=== PATIENT | female | born 1940 | race Caucasian/White ===

== ENCOUNTER 2017-05-07 03:23 | Emergency (ER) | payer OTHER ==
[~2017-05-07] VITALS: Ht 165.1 cm; Wt 76.0 kg
[2017-05-07 03:26] VITALS: BP 186/82; PULSE 93; RESP 16; TEMP 97.6; O2SAT 97
--- NOTE | 2017-05-07 04:29 | RADRPT ---
EXAM DATE/TIME: 05/07/2017 04:17 [place] COMPARISON: No previous studies available for comparison. INDICATIONS : Chest pain. MEDICAL HISTORY : None. SURGICAL HISTORY : Ablation. ENCOUNTER: Initial ACUITY: 2 days PAIN SCORE: 4/10 LOCATION: Bilateral chest FINDINGS: A single view of the chest demonstrates the lungs to be symmetrically aerated without evidence of mas s, infiltrate or effusion. The cardiomediastinal contours are unremarkable. Osseous structures are intact. CONCLUSION: Normal examination. Fabian Varner MD on May 07, 2017 at 4:28 Board Certified Radiologist. This report was verified electronically.
[2017-05-07 04:46] LABS: AUTOMATED NEUTROPHIL # 5.7 TH/MM3 (1.8-7.7); BASOPHIL % 0.3 % (0.0-2.0); EOSINOPHIL % 0.1 % (0.0-4.0); HEMATOCRIT 44.4 % (35.0-46.0); HEMO FLAGS DIFF FINAL; LYMPH % 12.6 % (9.0-44.0); LYMPHOCYTE # 0.8 TH/MM3 (1.0-4.8); MEAN CELL VOLUME 88.8 FL (80.0-100.0); MEAN CORPUSCULAR HEMOGLOBIN 29.6 PG (27.0-34.0); MEAN CORPUSCULAR HGB CONC 33.4 % (32.0-36.0); MONO % 1.2 % (0.0-8.0); NEUT % 85.8 % (16.0-70.0); PLATELET COUNT 195 TH/MM3 (150-450); RED CELL DISTRIBUTION WIDTH 13.6 % (11.6-17.2); WHITE BLOOD COUNT 6.6 TH/MM3 (4.0-11.0)
[2017-05-07 05:00] LABS: APTT (PATIENT) 26.3 SEC (24.3-30.1); INTERNATIONAL NORMALIZED RATIO 0.9 RATIO; PROTHROMBIN TIME - PATIENT 10.4 SEC (9.8-11.6)
[2017-05-07] MEDS ORDERED: FAMOTIDINE INJ 20 MG in SODIUM CHLORIDE 0.9% INJ 98 ML IV SCH (05:00)
[2017-05-07] MEDS ORDERED: diphenhydrAMINE HCL 50 MG/ML VIAL IV PUSH ONE ×2 (05:00→07:00)
[2017-05-07] MEDS ORDERED: methylPREDNISolone SOD SUCC 125 MG/2 ML VIAL IV PUSH ONE (05:00)
--- NOTE | 2017-05-07 05:14 | PD ---
HPI Chief Complaint: Skin Problem Time Seen by Provider: 03:40 Travel History International Travel<30 days: No Contact w/Intl Traveler<30days: No Traveled to known affect area: No History of Present Illness HPI The patient is a 76 year old female who presents to the [facility] emergency department with a history of acute onset of itching, tingling sensations in her mouth while eating grapefruit for the first time in years on Saturday evening. She reports that since then she developed a rash involving her chest, upper extremities and lower extremities. The patient reports that the rash is extremely itchy. The patient reports that she tried taking Benadryl, Claritin, and Zyrtec without any relief. The patient reports that on Saturday evening she went to a local urgent care center and was treated with a dose of Decadron. She was given a prescription for prednisone, however she has not filled the prescription yet. The patient reports that she became concerned that she had chest tightness and a sensation of having difficulty taking a deep breath. She also reports that she felt like she was having palpitations similar to when she had episodes of atrial fibrillation. She reports that she has not had any problems with atrial fibrillation since having an ablation 3 months ago. She denies having any tongue or throat swelling. She denies having any abdominal cramping or diarrhea. The patient denies any recent fevers , cough, congestion, neck pain, vomiting, urinary symptoms, or neurologic symptoms. COUNTS INCLUDE 234 BEDS AT THE [facility] Past Medical History Narrative Medical The patient's past medical history is significant for atrial fibrillation, hypertension. Past Surgical History Narrative Surgical The patient's past surgical history is unremarkable. Social History Alcohol Use: No Tobacco Use: No Substance Use: No Allergies-Medications (Allergen,Severity, Reaction): Coded Allergies: Latex (Verified Allergy, Mild, 05/07/17) Reported Meds & Prescriptions Reported Meds & Active Scripts Active Tagamet Hb (Cimetidine) 200 Mg Tab 200 Mg PO BID Medrol Dosepak (Methylprednisolone) 4 Mg Dspk 4 Mg PO DIRECTED Per Pharmacist direction Vistaril (Hydroxyzine Pamoate) 25 Mg Cap 25 Mg PO TID Review of Systems General / Constitutional: No: Fever Eyes: No: Visual changes HENT: No: Headaches Cardiovascular: Positive: Chest Pain or Discomfort (chest tightness), Palpitations Respiratory: No: Shortness of Breath Gastrointestinal: No: Abdominal Pain Genitourinary: No: Dysuria Musculoskeletal: No: Pain Skin: Positive Rash, Positive Itching Neurologic: No: Weakness Psychiatric: No: Depression Endocrine: No: Polydipsia Hematologic/Lymphatic: No: Easy Bruising Physical Exam Narrative General: The patient is a well-developed well-nourished female in no acute distress. Head and Neck exam: Head is normocephalic atraumatic. Eyes: EOMI, pupils are equal round and reactive to light. Nose: Midline septum with pink mucous membranes Mouth: Dentition unremarkable. Moist mucus membranes. Posterior oropharynx is not erythematous. No tonsillar hypertrophy. Uvula midline. Airway patent. Neck: No palpable lymphadenopathy. No nuchal rigidity. No thyromegaly. Cardiovascular: Regular rate and rhythm without murmurs, gallops, or rubs. Lungs: Clear to auscultation bilaterally. No wheezes, rhonchi, or rales. Abdomen: Soft, without tenderness to palpation in all 4 quadrants of the abdomen. No guarding, rebound, or rigidity. Normal bowel sounds are audible. No tenderness on palpation of McBurney's point. Negative Guzman's sign. Extremities: No clubbing, cyanosis, or edema. 2+ pulses in all 4 extremities. Back: No costovertebral angle tenderness to palpation. Neurologic Exam: Grossly nonfocal. Skin Exam: The patient has raised areas of erythema that appear to be urticaria on her chest, arms, upper abdomen, and knees. Intact skin that is warm and dry. Data Data Last Documented VS Vital Signs Date Time Temp Pulse Resp B/P Pulse Ox O2 Delivery O2 Flow Rate FiO2 05/07/17 07:04 67 20 166/88 100 05/07/17 06:07 Nasal Cannula 2 05/07/17 03:26 97.6 Orders Electrocardiogram (05/07/17 03:41) B-Type Natriuretic Peptide (05/07/17 03:41) Ckmb (Isoenzyme) Profile (05/07/17 03:41) Complete Blood Count With Diff (05/07/17 03:41) Comprehensive Metabolic Panel (05/07/17 03:41) Magnesium (Mg) (05/07/17 03:41) Prothrombin Time / Inr (Pt) (05/07/17 03:41) Act Partial Throm Time (Ptt) (05/07/17 03:41) Troponin I (05/07/17 03:41) Lipase (05/07/17 03:41) Chest, Single Ap (05/07/17 03:41) Ecg Monitoring (05/07/17 03:41) Bilateral Bp Monitoring (05/07/17 03:41) Iv Access Insert/Monitor (05/07/17 03:41) Oximetry (05/07/17 03:41) Oxygen Administration (05/07/17 03:41) Westergren Sedimentation Rate (05/07/17 03:41) Methylprednisolone So Succ Inj (Solumedr (05/07/17 05:00) Diphenhydramine Inj (Benadryl Inj) (05/07/17 05:00) Famotidine Inj (Pepcid Inj) (05/07/17 05:00) Diphenhydramine Inj (Benadryl Inj) (05/07/17 07:00) Labs Laboratory Tests Test 05/07/17 04:20 White Blood Count 6.6 TH/MM3 Red Blood Count 5.00 MIL/MM3 Hemoglobin 14.8 GM/DL Hematocrit 44.4 % Mean Corpuscular Volume 88.8 FL Mean Corpuscular Hemoglobin 29.6 PG Mean Corpuscular Hemoglobin 33.4 % Concent Red Cell Distribution Width 13.6 % Platelet Count 195 TH/MM3 Mean Platelet Volume 9.7 FL Neutrophils (%) (Auto) 85.8 % Lymphocytes (%) (Auto) 12.6 % Monocytes (%) (Auto) 1.2 % Eosinophils (%) (Auto) 0.1 % Basophils (%) (Auto) 0.3 % Neutrophils # (Auto) 5.7 TH/MM3 Lymphocytes # (Auto) 0.8 TH/MM3 Monocytes # (Auto) 0.1 TH/MM3 Eosinophils # (Auto) 0.0 TH/MM3 Basophils # (Auto) 0.0 TH/MM3 CBC Comment DIFF FINAL Differential Comment Erythrocyte Sedimentation Rate 7 mm/hr Prothrombin Time 10.4 SEC Prothromb Time International 0.9 RATIO Ratio Activated Partial 26.3 SEC Thromboplast Time Sodium Level 141 MEQ/L Potassium Level 4.5 MEQ/L Chloride Level 109 MEQ/L Carbon Dioxide Level 24.6 MEQ/L Anion Gap 7 MEQ/L Blood Urea Nitrogen 10 MG/DL Creatinine 0.93 MG/DL Estimat Glomerular Filtration 58 ML/MIN Rate Random Glucose 166 MG/DL Calcium Level 9.8 MG/DL Magnesium Level 2.0 MG/DL Total Bilirubin 1.0 MG/DL Aspartate Amino Transf 25 U/L (AST/SGOT) Alanine Aminotransferase 21 U/L (ALT/SGPT) Alkaline Phosphatase 70 U/L Total Creatine Kinase 75 U/L Troponin I LESS THAN 0.02 NG/ML B-Type Natriuretic Peptide 62 PG/ML Total Protein 7.5 GM/DL Albumin 3.8 GM/DL Lipase 115 U/L MDM Medical Decision Making Medical Screen Exam Complete: Yes Emergency Medical Condition: Yes Medical Record Reviewed: Yes Interpretation(s) Last Impressions Chest X-Ray 05/07/17 0341 Signed Impressions: Service Date/Time: Sunday, May 07, 2017 04:17 - CONCLUSION: Normal examination. Fabian Varner MD Differential Diagnosis Allergic reaction, versus acute coronary syndrome, versus reactive airway, versus pneumonia Narrative Course During the course of the patients emergency department visit, the patients history, examination, and differential diagnosis were reviewed with the patient. The patient had IV access obtained and blood work sent for analysis. The patient was placed on a diagnostic cardiac sonographer with oximetry and blood pressure monitoring. An EKG was done on arrival that showed no acute ST segment changes. The patient was initially provided Benadryl 25 mg IV, Solu-Medrol 125 mg IV, famotidine 20 mg IV. A repeat dose of Benadryl was given times one when the patient continued to have itching. The patients laboratory studies were reviewed and remarkable for a CBC that is unremarkable, sedimentation rate is 7. CMP is remarkable for chloride of 109, glucose 166, cardiac enzymes within normal limits, BNP is 62, lipase 115, PT PTT within normal limits. Radiology studies were reviewed and remarkable for a chest x-ray that shows no acute abnormality. The patient is resting comfortably and feels better, is alert and in no distress. The patients results and examination findings were discussed with the patient. The repeat examination is unremarkable and benign. The history, exam, diagnostic testing, and current condition do not suggest any significant pathology to warrant further testing, continued ED treatment, admission, or surgical evaluation at this point. The vital signs have been stable. The patient does not have uncontrollable pain, intractable vomiting, or other significant symptoms. The patient's condition is stable and appropriate for discharge. The patient will pursue further outpatient evaluation with a primary care physician or other designated or consulting physician as indicated in the discharge instructions. The patient expressed understanding and was agreeable with this plan. Diagnosis Primary Impression: Urticaria Additional Impression: Allergic reaction Qualified Code: T78.40XA - Allergic reaction, initial encounter Referrals: Primary Care Physician 2 days Patient Instructions: General Allergic Reaction (ED), General Instructions Med/Other Pt SpecificInfo: Prescription(s) given Scripts Cimetidine (Tagamet Hb)200 Mg [id number] Mg PO BID #14 TAB Ref 0 Prov:Keya Cornejo MD 05/07/17 Methylprednisolone Dosepak (Medrol Dosepak)4 Mg Dspk4 Mg PO DIRECTED #1 DSPK Ref 0 Per Pharmacist direction Prov:Keya Cornejo MD 05/07/17 Hydroxyzine Pamoate (Vistaril)25 Mg Cap25 Mg PO TID #12 CAP Ref 0 Prov:Keya Cornejo MD 05/07/17 Disposition: 01 DISCHARGE HOME Condition: Stable Keya Cornejo MD May 07, 2017 05:13
[2017-05-07 05:17] LABS: ALKALINE PHOSPHATASE 70 U/L (45-117); ALT (GPT) 21 U/L (10-53); ANION GAP 7 MEQ/L (5-15); AST (GOT) 25 U/L (15-37); BICARBONATE 24.6 MEQ/L (21.0-32.0); BLOOD UREA NITROGEN 10 MG/DL (7-18); CHLORIDE 109 MEQ/L (98-107); GLOMERULAR FILTRATION RATE 58 ML/MIN (>89); SODIUM (NA) 141 MEQ/L (136-145)
[2017-05-07 05:20] LABS: CREATINE KINASE 75 U/L (26-192); POTASSIUM 4.5 MEQ/L (3.5-5.1)
[2017-05-07] MEDS ORDERED: CIME200T23 PO (06:33)
[2017-05-07] MEDS ORDERED: VIST25CA PO (06:33)
[2017-05-07] MEDS ORDERED: MEDR4PAK PO (06:33)
[2017-05-07 07:04] VITALS: BP 166/88
--- NOTE | 2017-05-07 21:12 | EKG ---
Date Performed: 05/07/2017 Time Performed: 04:41:41 PTAGE: 76 years EKG: Sinus rhythm NORMAL ECG NO PREVIOUS TRACING DOCTOR: Butch Gonzales Interpretating Date/Time 05/07/2017 21:10:26
== END 2017-05-07 08:14 | disposition home or self-care (01) ==
LOC: NEPC 03:40
DX: L50.9 Urticaria, unspecified (principal); T78.40XA Allergy, unspecified, initial encounter; R07.89 Other chest pain; R06.00 Dyspnea, unspecified; R00.2 Palpitations; I48.91 Unspecified atrial fibrillation; I10 Essential (primary) hypertension
CPT/HCPCS: 71010; 80053; 82550; 83690; 83735; 83880; 84484; 85025; 85610; 85652; 85730; 93005; 96365; 96375; 96376; 99285; J1200; J2930

== ENCOUNTER 2017-05-13 13:14 | Emergency (ER) | payer OTHER ==
[~2017-05-13] VITALS: Ht 170.2 cm; Wt 78.0 kg
[~2017-05-13 13:14] MED LIST: CIME200T23 PO; MEDR4PAK PO; VIST25CA PO
[2017-05-13 13:16] VITALS: BP 176/87; PULSE 102; RESP 20; TEMP 97.7; O2SAT 98
[2017-05-13] MEDS ORDERED: APIX2.5T PO (13:49)
[2017-05-13] MEDS ORDERED: LISI-515 PO (13:49)
--- NOTE | 2017-05-13 14:50 | PD ---
HPI Chief Complaint: Skin Problem Time Seen by Provider: 14:42 Travel History International Travel<30 days: No Contact w/Intl Traveler<30days: No Traveled to known affect area: No History of Present Illness HPI 76-year-old female with a history of hypertension and atrial fibrillation presents to the emergency department for evaluation of pruritic rash for 1 week. Patient states that one week ago during lunch time she remembers eating a grapefruit and feeling a tingling sensation in her mouth. States that that afternoon she helped clean the backyard with her son by clearing out her limbs and brush. She denies any other changes in soaps, detergents, lotions, etc. States that that night she developed a pruritic rash on her arms and torso. States that she initially tried Claritin, Zyrtec and Benadryl the next day without improvement of symptoms. States that she went to an urgent care clinic the evening after the symptoms began and was given an injection of steroids without improvement. States that when she was still itching late that night she came to our emergency department was given multiple medications for her itching. States that she has taken all of these medications exactly as prescribed for the past 6 days and finished the prescriptions. States that her rash and pruritus has persisted without improvement. States she tried to go to her PCP office this morning and was told that she could not get in today so she came to the emergency department. She denies any fever, chills, nausea, vomiting, swelling of the lips or tongue, difficulty swallowing. States that she researched online and thinks it may be secondary to her lisinopril that she' s been taking for the last 8 years. No other complaints. PFSH Past Medical History Atrial Fibrillation: Yes Diminished Hearing: No Hypertension: Yes : 1 Para: 0 Social History Alcohol Use: No Tobacco Use: No Substance Use: No Allergies-Medications (Allergen,Severity, Reaction): Coded Allergies: Latex (Verified Allergy, Mild, 05/13/17) Reported Meds & Prescriptions Reported Meds & Active Scripts Active Vistaril (Hydroxyzine Pamoate) 25 Mg Cap 25 Mg PO TID PRN 7 Days Medrol Dosepak (Methylprednisolone) 4 Mg Dspk 4 Mg PO DIRECTED Per Pharmacist direction Reported Eliquis (Apixaban) 2.5 Mg Tab 2.5 Mg PO BID Lisinopril 20 Mg Tab 20 Mg PO BID Review of Systems Except as stated in HPI: all other systems reviewed are Neg Physical Exam Narrative GENERAL: Well-nourished and well-developed pleasant patient in no acute distress who is nontoxic appearing. SKIN: Warm and dry. Erythematous maculopapular rash to arms, chest and abdomen. HEAD: Normocephalic and atraumatic. EYES: No injection, drainage, or hyphema noted. PERRLA. EOMI. ENT: No nasal drainage noted. Oropharynx is clear. NECK: Supple and the trachea is midline. CARDIOVASCULAR: Regular rate and rhythm. RESPIRATORY: Breath sounds are equal bilaterally with no accessory muscle use, wheezing, rhonchi, or crackles. GASTROINTESTINAL: Abdomen is soft, non-tender, and nondistended. MUSCULOSKELETAL: No obvious deformities, swelling, cyanosis, or ecchymosis is present throughout the upper and lower extremities. Patient has full range of motion without any signs of neurovascular compromise. NEUROLOGICAL: Awake, alert, and oriented. Normal speech and gait. Cranial nerves are grossly intact. Data Data Last Documented VS Vital Signs Date Time Temp Pulse Resp B/P Pulse Ox O2 Delivery O2 Flow Rate FiO2 05/13/17 15:04 65 16 144/64 98 Room Air 05/13/17 13:16 97.7 Orders Dexamethasone Inj (Decadron Inj) (05/13/17 15:30) MDM Medical Decision Making Medical Screen Exam Complete: Yes Emergency Medical Condition: Yes Differential Diagnosis Allergic reaction versus dermatitis versus eczema versus other Narrative Course 76-year-old female presents to the emergency department for evaluation of pruritic rash for 1 week. Patient is afebrile, vital signs are stable. She has a nonspecific rash to her arms and torso. No signs of infection. I explained to the patient that the lisinopril she's been taking for the last 8 years is not what is causing her rash. She has not followed up as an outpatient with her PCP. I discussed the case with my attending physician Dr. Galeas who recommends placing her on another Medrol dose pack and having her follow up with her PCP. The patient is requesting to be given something here in the emergency department for symptoms. I gave her Decadron 4 mg IM. She is discharged with a Medrol Dosepak and Vistaril. Diagnosis Primary Impression: Rash Referrals: Guest Services Agent Primary Care Physician Patient Instructions: General Instructions Additional Instructions: Take medications as prescribed with food and a full glass of water. Follow-up with your Primary Care Physician. Return to the ED for any acute worsening of symptoms. Med/Other Pt SpecificInfo: Prescription(s) given Scripts Hydroxyzine Pamoate (Vistaril)25 Mg Cap25 Mg PO TID PRN (ITCHING AND/OR RASH) 7 Days Ref 0 Prov:Javier Galeas MD 05/13/17 Methylprednisolone Dosepak (Medrol Dosepak)4 Mg Dspk4 Mg PO DIRECTED #1 DSPK Ref 0 Per Pharmacist direction Prov:aJvier Galeas MD 05/13/17 Disposition: 01 DISCHARGE HOME Condition: Stable Cathy Iglesias May 13, 2017 14:50
[2017-05-13] MEDS ORDERED: VIST25CA PO (15:02)
[2017-05-13] MEDS ORDERED: MEDR4PAK PO (15:02)
[2017-05-13 15:04] VITALS: BP 144/64; PULSE 65; RESP 16; O2SAT 98
[2017-05-13] MEDS ORDERED: DEXAMETHASONE SOD PHOS 4 MG/ML VIAL IM ONE (15:30)
== END 2017-05-13 16:25 | disposition home or self-care (01) ==
LOC: NEPE 13:14
DX: R21 Rash and other nonspecific skin eruption (principal)
CPT/HCPCS: 96372; 99284; J1100